=== PATIENT | female | born 1975 | race Two or more races ===

== ENCOUNTER 2016-07-04 16:00 | Emergency (ER) | payer SELFPAY ==
[~2016-07-04] VITALS: Ht 165.1 cm; Wt 77.1 kg
[~2016-07-04 16:00] MED LIST: NORCO 5-325 TA1 EACH ORAL
[2016-07-04 16:04] VITALS: BP 122/81
[2016-07-04 16:40] LABS: MEAN CORPUSCULAR HEMOGLOBIN 29.4 PG (27.0-31.0); MEAN CORPUSCULAR HGB CONC 32.8 G/DL (32.0-36.0); MEAN CORPUSCULAR VOLUME 90 FL (80-99); MEAN PLATELET VOLUME 7.3 FL (6.5-10.1); PLATELET COUNT 232 K/UL (150-450); RED BLOOD COUNT 3.36 M/UL (4.20-5.40); RED CELL DISTRIBUTION WIDTH 12.3 % (11.6-14.8); WHITE BLOOD COUNT 2.7 K/UL (4.8-10.8)
[2016-07-04 16:54] LABS: ACETAMINOPHEN < 10 ug/mL (10-30); ALANINE AMINOTRANSFERASE 15 U/L (3-33); ALBUMIN/GLOBULIN RATIO 1.3 (1.0-2.7); ALCOHOL < 10 mg/dL; ANION GAP 14 (5-15); ASPARTATE AMINO TRANSFERASE 19 U/L (5-40); CARBON DIOXIDE 27 mEQ/L (20-30); CHLORIDE 96 mEQ/L (98-107); CREATININE 0.7 mg/dL (0.5-0.9); GLOMERULAR FILTRATION RATE > 60 mL/min (>60); HEMOLYSIS 4; POTASSIUM 3.7 mEQ/L (3.4-4.9); SODIUM 137 mEQ/L (135-145); TOTAL PROTEIN 6.9 g/dL (6.6-8.7)
[2016-07-04] MEDS ORDERED: Activated Charcoal 50gm/240ml Btl ORAL ONE (17:00)
[2016-07-04 18:06] LABS: ANISOCYTOSIS 1+; BAND NEUTROPHILS % (MANUAL) 1 % (0-8); BASOPHILS % (MANUAL) 1 % (0-2); EOSINOPHILS % (MANUAL) 5 % (0-3); HYPOCHROMASIA 1+; LYMPHOCYTES % (MANUAL) 51 % (20-45); NEUTROPHILS % (MANUAL) 35 % (45-75); PLATELET ESTIMATE ADEQUATE; PLATELET MORPHOLOGY NORMAL; TOTAL CELLS COUNTED 100
[2016-07-04 18:13] VITALS: BP 112/81
[2016-07-04 20:12] VITALS: BP 122/79
[2016-07-04] MEDS ORDERED: Naloxone 1mg/ml 2ml IM ONE (21:00)
[2016-07-04 21:18] LABS: BASOPHILS % (AUTO) 1.8 % (0.0-2.0); EOSINOPHILS % (AUTO) 6.4 % (0.0-3.0); LYMPHOCYTES % (AUTO) 50.9 % (20.0-45.0); MEAN CORPUSCULAR HEMOGLOBIN 29.3 PG (27.0-31.0); MEAN CORPUSCULAR HGB CONC 32.7 G/DL (32.0-36.0); MEAN CORPUSCULAR VOLUME 90 FL (80-99); MEAN PLATELET VOLUME 6.9 FL (6.5-10.1); MONOCYTES % (AUTO) 19.3 % (1.0-10.0); NEUTROPHILS % (AUTO) 21.6 % (45.0-75.0); PLATELET COUNT 178 K/UL (150-450); RED BLOOD COUNT 3.28 M/UL (4.20-5.40); RED CELL DISTRIBUTION WIDTH 12.6 % (11.6-14.8); WHITE BLOOD COUNT 3.5 K/UL (4.8-10.8)
--- NOTE | 2016-07-04 22:26 | Emergency Room Report ---
History of Present Illness General Chief Complaint: Overdose Source: EMS Present Illness HPI Patient was brought in by paramedics was found at a public building sounds to be possibly at [facility] patient appears to be confused There was a report of possible overdose on home medications which included [place] Patient has reported chronic back pain Upon arrival the patient was somnolent difficult to arouse Blood work was obtained Patient rested comfortably There was no reports of vomiting or diarrhea seen Patient when physically stimulated was able to deny any headache or visual changes Allergies: Coded Allergies: No Known Allergies (Unverified , 07/04/16) Patient History Limited by: medical condition Past Medical History: see triage record Pertinent Family History: none Reviewed Nursing Documentation: PMH: Agreed, PSxH: Agreed Review of Systems All Other Systems: limited - Other than the ones mentioned in the history of present illness all others are reviewed however they do stay limited due to the patient's mental status Physical Exam Vital Signs Date Time Temp Pulse Resp B/P Pulse Ox O2 Delivery O2 Flow Rate FiO2 07/04/16 15:52 98.6 77 16 122/81 99 Room Air Sp02 EP Interpretation: reviewed, normal General Appearance: no apparent distress Head: normocephalic, atraumatic Eyes: bilateral eye EOMI, bilateral eye PERRL ENT: normal pharynx, no angioedema Neck: full range of motion, thyroid normal Respiratory: lungs clear, normal breath sounds, no rhonchi Cardiovascular #1: normal peripheral pulses, regular rate, rhythm, no edema Gastrointestinal: soft, no mass, no organomegaly Genitourinary: no CVA tenderness Musculoskeletal: normal inspection Neurologic: responsive - To physical stimuli Skin: no rash, warm/dry Lymphatic: no adenopathy Medical Decision Making Diagnostic Impression: Primary Impression: Drug overdose ER Course The patient's initial presentation and complaints baseline blood was obtained, tylenol level is negative at this time As the patient continued to be somnolent Patient was given Narcan Which had an acute reaction Patient became agitated And stated that she told the nurse not to give her that medication Patient continues to be mildly agitated Still not able to give us the appropriate history And require further observation Patient signed out to my oncoming physician for reevaluation and final disposition likely discharge home once more appropriate Labs Test 07/04/16 16:25 07/04/16 17:05 07/04/16 20:54 White Blood Count 2.7 K/UL (4.8-10.8) 3.5 K/UL (4.8-10.8) Red Blood Count 3.36 M/UL (4.20-5.40) 3.28 M/UL (4.20-5.40) Hemoglobin 9.9 G/DL (12.0-16.0) 9.6 G/DL (12.0-16.0) Hematocrit 30.1 % (37.0-47.0) 29.5 % (37.0-47.0) Mean Corpuscular Volume 90 FL (80-99) 90 FL (80-99) Mean Corpuscular Hemoglobin 29.4 PG (27.0-31.0) 29.3 PG (27.0-31.0) Mean Corpuscular Hemoglobin Concent 32.8 G/DL (32.0-36.0) 32.7 G/DL (32.0-36.0) Red Cell Distribution Width 12.3 % (11.6-14.8) 12.6 % (11.6-14.8) Platelet Count 232 K/UL (150-450) 178 K/UL (150-450) Mean Platelet Volume 7.3 FL (6.5-10.1) 6.9 FL (6.5-10.1) Neutrophils (%) (Auto) % (45.0-75.0) 21.6 % (45.0-75.0) Lymphocytes (%) (Auto) % (20.0-45.0) 50.9 % (20.0-45.0) Monocytes (%) (Auto) % (1.0-10.0) 19.3 % (1.0-10.0) Eosinophils (%) (Auto) % (0.0-3.0) 6.4 % (0.0-3.0) Basophils (%) (Auto) % (0.0-2.0) 1.8 % (0.0-2.0) Differential Total Cells Counted 100 Neutrophils % (Manual) 35 % (45-75) Lymphocytes % (Manual) 51 % (20-45) Monocytes % (Manual) 7 % (1-10) Eosinophils % (Manual) 5 % (0-3) Basophils % (Manual) 1 % (0-2) Band Neutrophils 1 % (0-8) Platelet Estimate Adequate Platelet Morphology Normal Hypochromasia 1+ Anisocytosis 1+ Sodium Level 137 mEQ/L (135-145) Potassium Level 3.7 mEQ/L (3.4-4.9) Chloride Level 96 mEQ/L (98-107) Carbon Dioxide Level 27 mEQ/L (20-30) Anion Gap 14 (5-15) Blood Urea Nitrogen 5 mg/dL (7-23) Creatinine 0.7 mg/dL (0.5-0.9) Estimat Glomerular Filtration Rate > 60 mL/min (>60) Glucose Level 91 mg/dL (74-106) Calcium Level 9.0 mg/dL (8.6-10.2) Total Bilirubin 0.2 mg/dL (0.0-1.2) Aspartate Amino Transf (AST/SGOT) 19 U/L (5-40) Alanine Aminotransferase (ALT/SGPT) 15 U/L (3-33) Alkaline Phosphatase 92 U/L (35-104) Total Protein 6.9 g/dL (6.6-8.7) Albumin 4.0 g/dL (3.5-5.2) Globulin 2.9 g/dL Albumin/Globulin Ratio 1.3 (1.0-2.7) Salicylates Level < 1 mg/dL (10-30) Acetaminophen Level < 10 ug/mL (10-30) Serum Alcohol < 10 mg/dL Urine HCG, Qualitative Negative Urine Opiates Screen Positive (NEGATIVE) Urine Barbiturates Screen Negative (NEGATIVE) Phencyclidine (PCP) Screen Negative (NEGATIVE) Urine Amphetamines Screen Negative (NEGATIVE) Urine Benzodiazepines Screen Positive (NEGATIVE) Urine Cocaine Screen Negative (NEGATIVE) Urine Marijuana (THC) Screen Negative (NEGATIVE) Rhythm Strip Diag. Results EP Interpretation: yes Rate: 77 Rhythm: NSR, no PVC's, no ectopy Last Vital Signs Date Time Temp Pulse Resp B/P Pulse Ox O2 Delivery O2 Flow Rate FiO2 07/04/16 20:12 98.6 78 11 122/79 100 Room Air Status: improved Disposition: HOME, SELF-CARE Condition: Improved Referrals: NOT CHOSEN IPA/,REFERRING (PCP) BRAYDON LUNA D.O. Jul 04, 2016 22:26
[2016-07-04 22:39] VITALS: BP 144/121
[2016-07-05 00:27] VITALS: BP 115/75
[2016-07-05 01:50] VITALS: BP_SYST 115; BP_SYST 121; BP_DIAS 75; BP_DIAS 87
== END 2016-07-05 01:55 | disposition home or self-care (01) ==
LOC: EDBD 16:00 → EMR 18:39
DX: T50.901A Poisoning by unspecified drugs, medicaments and biological substances, accidental (unintentional), initial encounter (principal); Y92.9 Unspecified place or not applicable; M54.9 Dorsalgia, unspecified; G89.29 Other chronic pain
CPT/HCPCS: 36415; 80053; 80300; 81025; 85007; 85025; 96360; 96372; 99284; G0480; J2310; J7040; 80329

== ENCOUNTER 2017-06-23 11:53 | Emergency (ER) | payer SELFPAY ==
[~2017-06-23] VITALS: Ht 162.6 cm; Wt 63.5 kg
--- NOTE | 2017-06-23 13:19 | Diagnostic Imaging Report ---
Indication: Headache Technique: Contiguous 5 mm thick transaxial imaging of the head obtained in a Siemens Sensation [address] scanner. Soft tissue and bone windows generated. Automatic Exposure Control was utilized. Total Dose length Product (DLP): 1291.[address] Dose Index Volume (CTDIvol): 70.38 mGy Comparison: none Findings: The size and configuration of the cortical sulci, basal cisterns, and ventricles are within normal limits for age. There is no mass effect, midline shift, or edema identified. There is no evidence of acute hemorrhage or abnormal intra-axial or extra-axial fluid collections. The bones and soft tissues are unremarkable. Impression: No mass effect, edema or acute bleed. The CT scanner at [facility] is accredited by the [employer] and the scans are performed using dose optimization techniques as appropriate to a performed exam including Automatic Exposure control.
--- NOTE | 2017-06-23 13:54 | Emergency Room Report ---
History of Present Illness General Chief Complaint: Lower Back Pain or Injury Source: Patient, Medical Record Present Illness HPI 42 YO Female presents to the ED c/o low back pain and headache intermittent x 2 weeks. pt. here from methadone clinic. Per methadone clinic pt. has hx of Benzo abuse and believes she may have used. Pt. is lethargic and slow to respond. Pt. denies SI or intentional over use of medication. Reports only taken methadone today. Denies recent Benzo use. HPI and ROS is limited due to poor Pt. cooperation. requires repeated painful and verbal stimuli. Allergies: Coded Allergies: No Known Allergies (Unverified , 07/04/16) Patient History Past Medical History: see triage record, other - substance abuse history. Past Surgical History: none Pertinent Family History: none Last Menstrual Period: on period Reviewed Nursing Documentation: PMH: Agreed, PSxH: Agreed Nursing Documentation-PMH Past Medical History: No History, Except For Review of Systems All Other Systems: negative except mentioned in HPI Physical Exam Vital Signs Date Time Temp Pulse Resp B/P (MAP) Pulse Ox O2 Delivery O2 Flow Rate FiO2 06/23/17 11:53 98.0 86 14 109/70 98 Room Air 98.1 Sp02 EP Interpretation: reviewed, normal General Appearance: no apparent distress - resting/sleeping comfortable, non- toxic, lethargic - slow speech, lethargic, required sternal rub to awaken and answer HPI questions. Head: normocephalic, atraumatic Eyes: bilateral eye normal inspection, bilateral eye PERRL ENT: hearing grossly normal, normal voice Neck: full range of motion, no bony tend Respiratory: chest non-tender, lungs clear, normal breath sounds, no respiratory distress, no wheezing, speaking full sentences Cardiovascular #1: regular rate, rhythm, no edema, normal capillary refill Gastrointestinal: normal bowel sounds, non tender, soft Musculoskeletal: back normal, gait/station normal, normal range of motion, tender - lumbar paraspinal TTP, no midline TTP, pt. FROM able to sit up and ambulatory. Neurologic: responsive, motor strength/tone normal, sensory intact, normal gait , speech normal, grossly normal - no evidence of incontinence, gross motor movement and sensation intact. Psychiatric: judgement/insight normal, no suicidal/homicidal ideation Skin: normal color, no rash, warm/dry, well hydrated Medical Decision Making PA Attestation Dr. arvizu is my supervising Physician whom patient management has been discussed with. Diagnostic Impression: Primary Impression: Substance abuse Additional Impression: Low back pain Qualified Codes: M54.5 - Low back pain ER Course 42 YO Female presents to the ED c/o low back pain and headache intermittent x 2 weeks. pt. here from methadone clinic. Per methadone clinic pt. has hx of Benzo abuse and believes she may have used. Pt. is lethargic and slow to respond. Pt. denies SI or intentional over use of medication. Reports only taken methadone today. Denies recent Benzo use. HPI and ROS is limited due to poor Pt. cooperation. requires repeated painful and verbal stimuli. Ddx considered but are not limited to ETOH, Trauma, Syncope, dementia, OD, substance abuse , SI/HI Vital signs: are WNL, pt. is afebrile H&PE are most consistent with acute drug intoxication - Lethargic, slow response. ORDERS: - CT Head NO Contrast: No evidence of acute fracture, hemorrhage, or intracranial process. Per official radiology report- Please see report for specific details. ED INTERVENTIONS: -Observance while she detoxifies/ keith up -Pt. was allowed to sleep/rest. -PT. became awake and alert x 3 , ambulatory with a steady gait. -Pt. moved from gurney to FT Chair until she feels ready to be d/c. DISCHARGE: At this time pt. is stable for d/c to home. Will provide printed patient care instructions, and any necessary prescriptions. Care plan and follow up instructions have been discussed with the patient prior to discharge. CT/MRI/US Diagnostic Results CT/MRI/US Diagnostic Results : Imaging Test Ordered: CT HEAD NO CONTRAST Impression - CT Head NO Contrast: No evidence of acute fracture, hemorrhage, or intracranial process. Per official radiology report- Please see report for specific details. Last Vital Signs Date Time Temp Pulse Resp B/P (MAP) Pulse Ox O2 Delivery O2 Flow Rate FiO2 06/23/17 11:53 98.0 86 14 109/70 98 Room Air 98.1 Disposition: HOME, SELF-CARE Condition: Stable Scripts Lidocaine (Lidoderm) 1 Each Adh..patch 1 PATCH TOPIC DAILY, #30 PATCH 0 Refills Patch(es) may remain in place for up to 12 hours in any 24-hour period. Prov: Es Gonzalez 06/23/17 Acetaminophen* (TYLENOL EXTRA STRENGTH*) 500 Mg Tablet 500 MG ORAL Q6H, #10 TAB 0 Refills Prov: Es Gonzalez 06/23/17 Referrals: NOT CHOSEN IPA/MD,REFERRING (PCP) Patient Instructions: Back Pain, Adult, Contusion, [id number], Substance Use Disorder Additional Instructions: Take any previously prescribed medications as directed. - Do not take more than prescribed. Follow up with a Primary Care Provider in 3-5 days, even if your symptoms have resolved. --Please review list of primary care clinics, if you do not already have a primary care provider Return sooner to ED if new symptoms occur, or current symptoms become worse. - Please note that this Emergency Department Report was dictated using [employer] line repairer technology software, occasionally this can lead to erroneous entry secondary to interpretation by the dictation equipment. Es Gonzalez Jun 23, 2017 13:54
[2017-06-23] MEDS ORDERED: TYLENOL EXTRA500 MG ORAL (14:00)
[2017-06-23] MEDS ORDERED: LIDODERM700 M1 TOPIC (14:00)
[2017-06-23 15:08] VITALS: BP 107/72
== END 2017-06-23 15:10 | disposition home or self-care (01) ==
LOC: EDBD 11:53 → EMR 12:37
DX: M54.5 Low back pain (principal); F19.10 Other psychoactive substance abuse, uncomplicated; R51 Headache
CPT/HCPCS: 70450; 99284

== ENCOUNTER 2017-10-08 01:12 | Emergency (ER) | payer SELFPAY ==
[~2017-10-08] VITALS: Ht 157.5 cm; Wt 59.0 kg
[~2017-10-08 01:12] MED LIST changes: +LIDODERM700 M1 TOPIC; +METHADONE HCL5 MG PO; +TYLENOL EXTRA500 MG ORAL
[2017-10-08] MEDS ORDERED: Tetanus/Diptheria/Pertussis Vaccine 0.5ml Syr IM ONE (01:30)
--- NOTE | 2017-10-08 02:52 | Diagnostic Imaging Report ---
EXAM: CT Head Without Intravenous Contrast CLINICAL HISTORY: H/A TECHNIQUE: Axial computed tomography images of the head/brain without intravenous contrast. CTDI is 70 mGy and DLP is 1400 mGy-cm. One or more of the following dose reduction techniques were used: automated exposure control, adjustment of the mA and/or kV according to patient size, use of iterative reconstruction technique. COMPARISON: None. FINDINGS: Brain: Unremarkable. No hemorrhage. Age-appropriate white matter appearance. No CT evidence of acute infarct. Ventricles: Unremarkable. No ventriculomegaly. Bones/joints: Unremarkable. No acute fracture. Soft tissues: Unremarkable. Sinuses: Unremarkable as visualized. No acute sinusitis. Mastoid air cells: Unremarkable as visualized. No mastoid effusion. IMPRESSION: No acute intracranial process.
--- NOTE | 2017-10-08 02:54 | Diagnostic Imaging Report ---
EXAM: CT Maxillofacial Without Intravenous Contrast CLINICAL HISTORY: H/A TECHNIQUE: Axial computed tomography images of the face without intravenous contrast. CTDI is 30 mGy and DLP is 500 mGy-cm. One or more of the following dose reduction techniques were used: automated exposure control, adjustment of the mA and/or kV according to patient size, use of iterative reconstruction technique. COMPARISON: None. FINDINGS: Bones/joints: No acute fracture. Soft tissues: Unremarkable. Orbits: Unremarkable. Sinuses: Unremarkable. No air-fluid levels. IMPRESSION: Unremarkable exam.
--- NOTE | 2017-10-08 03:02 | Diagnostic Imaging Report ---
EXAM: CT Cervical Spine Without Intravenous Contrast CLINICAL HISTORY: H/A TECHNIQUE: Axial computed tomography images of the cervical spine without intravenous contrast. CTDI is 10 mGy and DLP is 300 mGy-cm. One or more of the following dose reduction techniques were used: automated exposure control, adjustment of the mA and/or kV according to patient size, use of iterative reconstruction technique. COMPARISON: No relevant prior studies available. FINDINGS: Vertebrae: Unremarkable. No acute fracture. Discs/spinal canal/neural foramina: No acute findings. No spinal canal stenosis. Soft tissues: Unremarkable. Lung apices: Unremarkable as visualized. IMPRESSION: No acute fracture or malalignment.
[2017-10-08] MEDS ORDERED: Bacitracin Oint UD TOPIC ONE (04:00)
[2017-10-08 04:11] VITALS: BP 97/56
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
[2017-10-08] MEDS ORDERED: BACITRACIN15 GM TOPIC (06:03)
[2017-10-08] MEDS ORDERED: TYLENOL EXTRA500 MG ORAL (06:03)
[2017-10-08 07:02] VITALS: BP 102/62
[2017-10-08 07:05] VITALS: BP 102/62
== END 2017-10-08 07:06 | disposition home or self-care (01) ==
LOC: EDBD 01:12 → EMR 01:39
DX: S01.111A Laceration without foreign body of right eyelid and periocular area, initial encounter (principal); Y04.2XXA Assault by strike against or bumped into by another person, initial encounter; Y92.89 Other specified places as the place of occurrence of the external cause; Z23 Encounter for immunization; M54.2 Cervicalgia; R51 Headache
CPT/HCPCS: 70450; 70486; 72125; 90471; 90715; 99284